=== PATIENT | female | born 1935 | race Caucasian/White ===

== ENCOUNTER 2017-02-11 10:22 | Outpatient (CLI) | payer MEDICARE, OTHER ==
[2017-02-11 11:12] LABS: #Basophils 0.2 thou/uL (0.0-0.2); #Eosinphils 0.5 thou/uL (0.0-0.7); #Lymphocytes 4.1 thou/uL (1.20-3.40); #Monocytes 0.7 thou/uL (0.11-0.59); #Neutrophils 5.2 thou/uL (1.40-6.50); %Basophils 1.8 % (0.0-1.0); %Eosinophils 4.2 % (0.0-10.0); %Lymphocytes 38.5 % (21.0-51.0); %Monocytes 6.8 % (0.0-10.0); %Neutrophils 48.7 % (42.0-75.0); Hemoglobin 12.7 g/dL (12.0-16.0); Mean Corpuscular HGB CONC 31.8 g/dL (32.0-36.0); Mean Corpuscular Hemoglobin 28.8 pg (27.0-31.0); Mean Corpuscular Volume 90.8 fl (81.0-99.0); Mean Platelet Volume 8.3 fL (7.4-10.4); Platelet Count 277 thou/uL (130-400); White Blood Cell (WBC) Count 10.7 thou/uL (4.8-10.8)
[2017-02-11 11:24] LABS: ALT (SGPT) 16 U/L (8-55); AST (SGOT) 15 U/L (5-34); Albumin 4.2 g/dL (3.4-4.8); Alkaline Phosphatase 55 U/L (40-150); Anion Gap 16 mmol/L (10-20); BUN (Urea Nitrogen) 31 mg/dL (9.8-20.1); Bilirubin, Total 0.9 mg/dL (0.2-1.2); Calc. Creatinine Clearance 0 mL/min (70-130); Calcium 9.7 mg/dL (7.8-10.44); Carbon Dioxide 23 mmol/L (23-31); Cardiac Risk 3.1 (Less than 4.5); Chloride 106 mmol/L (98-107); Cholesterol 114 mg/dl (< 200 Desired); Estimated GFR-MDRD 42; Globulin 3.2 g/dL (2.4-3.5); Glucose 108 mg/dL (83-110); HDL Cholesterol 37 mg/dL (>60 Neg Risk); LDL Cholesterol, Calculated 55 mg/dL; Potassium 5.5 mmol/L (3.5-5.1); Protein, Total 7.4 g/dL (6.0-8.3); Sodium 139 mmol/L (136-145); Triglycerides 111 mg/dL (Less than 150)
[2017-02-11 11:34] LABS: Hemoglobin A1c 5.9 % (4.0-6.0)
[2017-02-11 11:57] LABS: Free T4 (Free Thyroxine) 1.11 ng/dL (0.70-1.48); Thyroid Stimulating Hormone 0.8655 uIU/mL (0.35-4.94)
== END 2017-02-11 10:23 | disposition home or self-care (01) ==
LOC: MADLAB 10:22
PROVIDERS: ATTEND Internal Medicine Cardiovascular Disease
DX: E78.00 Pure hypercholesterolemia, unspecified (principal); D50.0 Iron deficiency anemia secondary to blood loss (chronic); E03.9 Hypothyroidism, unspecified; E11.9 Type 2 diabetes mellitus without complications; R53.83 Other fatigue
CPT/HCPCS: 36415; 80053; 80061; 83036; 84439; 84443; 84481; 85025; 86800